=== PATIENT | male | born 1960 | race Caucasian/White ===

== ENCOUNTER 2021-12-26 05:05 | Observation (INO) ==
--- NOTE | 2021-12-09 11:04 | PAT Medication Instructions ---
Medication Instructions Date of Service December 09, 2021 Home Medications Medication Instructions Recorded alprazolam 0.5 mg tablet 0.5 mg PO TID #30 tab 09/18/20 donepezil 5 mg tablet 5 mg PO HS #30 tab 11/19/21 alprazolam 0.5 mg tablet 0.5 mg PO TID cholecalciferol (vitamin D3) 50 mcg (2,000 unit) capsule 50 mcg PO QAM turmeric root extract 500 mg capsule 500 mg PO QAM sertraline 50 mg tablet (Zoloft) 50 mg PO QAM donepezil 5 mg tablet 5 mg PO HS Total Beets 1 dose PO DAILY amlodipine 2.5 mg tablet 2.5 mg PO QAM ezetimibe 10 mg tablet 10 mg PO QAM gabapentin 300 mg capsule 900 mg PO TID Glucosamine Chondroitin 1 cap PO QAM lisinopril 20 mg tablet 20 mg PO QAM mirtazapine 15 mg tablet 30 mg PO HS rosuvastatin 20 mg tablet 20 mg PO Q OTHER DAY STOP taking 2 weeks before surgery (or as soon as possible if surgery is within 2 weeks) turmeric root extract 500 mg capsule 500 mg PO QAM Total Beets 1 dose PO DAILY Glucosamine Chondroitin 1 cap PO QAM DO NOT take the morning of surgery cholecalciferol (vitamin D3) 50 mcg (2,000 unit) capsule 50 mcg PO QAM lisinopril 20 mg tablet 20 mg PO QAM Take morning of surgery With a small sip of water, OTHERWISE NOTHING TO EAT OR DRINK AFTER MIDNIGHT: alprazolam 0.5 mg tablet 0.5 mg PO TID sertraline 50 mg tablet (Zoloft) 50 mg PO QAM amlodipine 2.5 mg tablet 2.5 mg PO QAM ezetimibe 10 mg tablet 10 mg PO QAM gabapentin 300 mg capsule 900 mg PO TID rosuvastatin 20 mg tablet 20 mg PO Q OTHER DAY (if scheduled to take on day of surgery) Take evening before surgery alprazolam 0.5 mg tablet 0.5 mg PO TID donepezil 5 mg tablet 5 mg PO HS gabapentin 300 mg capsule 900 mg PO TID mirtazapine 15 mg tablet 30 mg PO HS Other Notes If you have any questions please call us at [phone] or [phone] or [phone] or [phone]
--- NOTE | 2021-12-10 14:09 | Anesthesiology Consultation ---
Date of Service December 10, 2021 Assessment & Plan (1) Encounter for pre-operative examination: - COVID screening: Per assessment on 12/10: No known COVID-19 positive contacts or current COVID-19 related symptoms. Travel screen negative. Patient vaccinat ed. Surgeon arranging preop COVID testing. Awaiting results. - Cardiology office visit (11/06/21): "New patient- abnormal stress test [positive exercise stress EKG done 10/23/21- see testing section for report].. unavailable for review today... hypertension, benign.. Add amlodipine for BP and antianginal." Previous stress test reviewed and recommendation for patient to have f/u nuclear stress test (done 12/09/21) which was unremarkable. Chart Review Chart Review: Acceptable Risk for Surgery (pending evaluation AM DOS) and Patient seen in Pre Admission Testing Teaching & Discussion Pre-Anesthesia Teaching/Discussion Notes: Instructed NPO after midnight before surgery,except medications with 15 cc of water. Medication instructions provided according to the PAT guidelines. History Surgery Operation Date: 12/26/21 07:00 Proposed Procedures p Right Total Knee Arthroplasty - Adrian Flores MD Height/Weight Height: 5 ft 11 in Weight: 88.3 kg Allergies Allergy/AdvReac Type Severity Reaction Status Date / Time Penicillins Allergy Unknown Verified 12/10/21 14:37 reaction as child Medications Home Medications Medication Instructions Recorded Confirmed Last Taken alprazolam 0.5 mg tablet 0.5 mg PO TID #30 tab 09/18/20 12/09/21 Unknown cholecalciferol (vitamin D3) 50 50 mcg PO QAM 10/09/20 12/09/21 Unknown mcg (2,000 unit) capsule turmeric root extract 500 mg 500 mg PO QAM 10/09/20 12/09/21 Unknown capsule sertraline 50 mg tablet (Zoloft) 50 mg PO QAM 08/16/21 12/09/21 Unknown donepezil 5 mg tablet 5 mg PO HS #30 tab 11/19/21 12/09/21 Unknown Total Beets 1 dose PO DAILY 12/09/21 12/09/21 Unknown amlodipine 2.5 mg tablet 2.5 mg PO QAM 12/09/21 12/09/21 Unknown ezetimibe 10 mg tablet 10 mg PO QAM 12/09/21 12/09/21 Unknown gabapentin 300 mg capsule 900 mg PO TID 12/09/21 12/09/21 Unknown glucosamine sulf dipot 1 cap PO QAM 12/09/21 12/09/21 Unknown chlr,msm,chond 550 mg-C 30 mg-geneva 1 mg capsule (Glucosamine Chondroitin) lisinopril 20 mg tablet 20 mg PO QAM 12/09/21 12/09/21 Unknown mirtazapine 15 mg tablet 30 mg PO HS 12/09/21 12/09/21 Unknown rosuvastatin 20 mg tablet 20 mg PO Q OTHER DAY 12/09/21 12/09/21 Unknown Past Medical History Medical History Alzheimer's dementia Mild per [facility] [place] ([place]. Sr) Anxiety Reason for gabapentin per pt High cholesterol Hypertension ABEL (obstructive sleep apnea) Has mouth guard (does not use) Osteoarthritis Exercise / Class Metabolic Activity II 4-5 Yardwork/Stairs/Walk up hill Past Family History Family History Father Dementia Cancer Mother Parkinson disease Grandmother (Maternal) Heart disease Grandfather (Maternal) Stroke Grandmother (Paternal) Cancer Brain cancer Past Surgical History Surgical History History of colonoscopy History of myringotomy History of tonsillectomy History of tooth extraction Hx of LASIK S/P hernia surgery x4 S/P knee replacement Left knee Past Anesthesia History No Hx of Anesthesia Complications and No Family Hx of Anesthesia Complications History of PONV No Hx of PONV and No Hx of Motion Sickness Social History Smoking Status: Never smoker Do You Dip or Chew Tobacco: No Hx Alcohol Use: Yes Alcohol type: other alcohol intake frequency: a few times a week Hx Substance Use: No substance use type: does not use Review of Systems Patient denies chest pain, shortness of breath, dyspnea on exertion, fever, chills, cough, wheezing, palpitations. Physical Exam Vital Signs VITALS BP 123/78 P 53 TEMP 98.4 SP02 98%RA RESP 16 PHYSICAL Full cervical extension range of motion. Full TMJ range of motion. TMD 3.5 finger breaths Mallampati Score 2 Dentition: intact Lungs: clear throughout to auscultation Cardiac: regular rate and rhythm, no murmurs noted Spine: normal Carotid arteries: negative bruit Extremities: no edema Lab Results Anesthesia Preop Results Results Anesthesia Widget: WBC 6.35 K/uL (4.8-10.8) 12/10/21 Hgb 14.3 g/dL (14.0-18.0) 12/10/21 Hct 43.4 % (42-52) 12/10/21 Plt 188 K/uL (130-400) 12/10/21 Na 140 mmol/L (136-145) 12/10/21 K 4.0 mmol/L (3.5-5.1) 12/10/21 Cl 105 mmol/L (98-107) 12/10/21 CO2 29 mmol/L (21-32) 12/10/21 BUN 11 mg/dl (6-23) 12/10/21 Creat 0.77 mg/dl (0.6-1.4) 12/10/21 Glucose Level 83 mg/dl (70-99(Fasting)) 12/10/21 PT 10.9 Seconds (9.0-12.0) 12/10/21 PTT 30.2 Seconds (21.0-31.0) 12/10/21 INR 1.0 (0.9-1.1) 12/10/21 HA1c 5.4 % (4.5-5.6) 12/10/21 Urine Color Yellow 12/10/21 Urine Appearance Clear (Clear) 12/10/21 Urine pH 7.0 (4.5-7.5) 12/10/21 Urine Specific [place] 1.017 (1.000-1.030) 12/10/21 Urine Protein Negative (Negative) 12/10/21 Urine Glucose (UA) Negative (Negative) 12/10/21 Urine Ketones Negative (Negative) 12/10/21 Urine Blood Negative (Negative) 12/10/21 Urine Nitrite Negative (Negative) 12/10/21 Urine Bilirubin Negative (Negative) 12/10/21 Urine Urobilinogen Negative (Negative) 12/10/21 Urine Leukocyte Esterase Negative (Negative) 12/10/21 Blood Type O Positive 12/10/21 Antibody Screen NEGATIVE 12/10/21 Testing Electrocardiogram Date: 12/10/21 SB at 50bpm. Otherwise normal ECG. Echocardiogram Date: 09/19/21 EF 60%. No obvious regional wall motion abnormality. No significant valvular disease. Stress Test Date: 12/09/21 Type: nuclear Exercise stress test (10/23/21): Exercise stress EKG is positive for ischemia at a workload of approximately 7 METS. There is low sensitivity and if there is clinical concern for coronary artery disease, adding an imaging modality to the stress test is advised. Patient was subsequently seen by cardiology and nuclear stress test was performed 12/09/2021 which was unremarkable. Nuclear stress test (12/09/21): SPECT perfusion images are considered to be WNL. No significant infarction/ischemia. LVEF 59%.
--- NOTE | 2021-12-11 15:04 | History & Physical Report ---
Date of Service December 11, 2021 Assessment & Plan (1) Osteoarthritis of right knee: Plan: PRE-OP Diagnosis: Right knee osteoarthritis Planned Procedure: Right total knee arthroplasty Plan: Patient is scheduled to undergo this procedure at the [facility] with a 23-hour observation admission with Dr. Flores on December 26, 2021. Risks and complications of the procedure such as: Infection, bleeding, pain, scarring, nerve blood vessel damage, weakness, wound problems, stiffness, incomplete relief of symptoms, hardware failure, hardware loosening, wear, fracture, tendon or ligament injury, blood clots, embolism, heart attack, stroke and were explained to the patient at his visit today. Informed consent to perform the procedure was obtained. Patient also understands risks of proceeding with surgical intervention during the COVID-19 pandemic. Currently he is asymptomatic and understands that he will need to be tested prior to surgery. Patient is scheduled to meet with anesthesia later today and while there he will obtain a CBC with differential, complete metabolic panel, PT/INR, blood type and screen, urinalysis, urine culture and sensitivity, EKG, hemoglobin A1c and a nasal culture for MRSA. Patient states that he is schedul ed to meet with his primary care provider this coming Thursday for preoperative clearance. During today's appointment with a reviewed the total knee packet, discussed discharge planning. We also talked about lectures offered by [facility] in regards to joint replacement surgery via Zoom. Patient states he has a walker he will bring with him on the day of surgery. I advised him that he will be discharged from the hospital on postoperative day 1 with prescriptions for a narcotic pain medication, and anti-inflammatory medication. We would like him to use extra strength Tylenol for supplemental pain control and an 81 mg aspirin twice a day for the first 30 days postoperatively for blood clot prevention. Patient states that he would most likely do in-home physical therapy for the first 2 weeks postoperatively and then will transition to outpatient physical therapy Near his home. Patient is scheduled for his 2-week postoperative follow-up with myself on January 10 at 1 PM. Patient and his verbalized understanding of all information provided during today's visit. They thanked us for the care that they have received. If they have questions or concerns or should arise prior to the patient's surgery, they will contact clinic. History of Present Illness Chief Complaint: Chief Complaint: Right knee pain Primary Care Provider: Luc Uriostegui History of Present Illness (including history relevant to procedure): This 61-year-old male presents to clinic today for his preoperative history and physical. Patient complains of a 5 to 6-year history of significant right sided knee pain that has become progressively worse over the past several months. He localizes most of his pain to the medial aspect of his knee. Pain is very bothersome and affects him when he gets in and out of his car, goes up or down steps, attempts to walk long distances or does any type of twisting movements. Patient states that he had his left knee replaced several years ago and states that symptoms that he is having in his right knee are very similar to those in his left prior to his surgery. He would like to proceed with surgical intervention at this time. Review Of Systems: A 12 point review of systems is performed is unremarkable except for those things stated in the HPI and past medical history. Past Medical History: Problems: Chronic nausea Anxiety Loss of memory Hypertension Heart palpitations Hiatal hernia Procedure History Procedure Procedure Date Comments Knee replacement Bilateral inguinal hernia repair Umbilical hernia repair 2018 - left Allergies and Sensitivities: penicillins(unknown) Social history: Patient states that he drinks approximately 2 alcoholic beverages per week. He denies tobacco or illicit drug use. Family history: Parkinson's disease, Alzheimer's dementia, cancer and heart disease Current Home Meds: (Last Updated 12/10 12:45) ALPRAZolam (Xanax) 2.5 mg PO Daily cholecalciferol (Vitamin D3) PO Daily chondroitin-glucosamine (Chondroitin-Glucosamine oral tablet) PO Daily w/MSM cyanocobalamin (Vitamin B12) donepezil 5 mg PO Daily ezetimibe 10 mg PO Daily gabapentin 400 mg PO Daily lisinopril (lisinopril 20 mg oral tablet) 20 mg TAKE 1 TABLET BY MOUTH EVERY DAY mirtazapine (mirtazapine 15 mg oral tablet) rosuvastatin 20 mg PO Daily sertraline (Zoloft) 25 mg PO Daily turmeric (turmeric 500 mg oral capsule) unknown medication (BEETS) Initial Wt: 12/10 88.0 kg 194 lb Allergies Allergy/AdvReac Type Severity Reaction Status Date / Time Penicillins Allergy Unknown Verified 12/10/21 14:37 reaction as child Home Medications Medication Instructions Recorded Confirmed Type alprazolam 0.5 mg tablet 0.5 mg PO TID #30 tab 09/18/20 12/09/21 Rx cholecalciferol (vitamin D3) 50 50 mcg PO QAM 10/09/20 12/09/21 History mcg (2,000 unit) capsule turmeric root extract 500 mg 500 mg PO QAM 10/09/20 12/09/21 History capsule sertraline 50 mg tablet (Zoloft) 50 mg PO QAM 08/16/21 12/09/21 History donepezil 5 mg tablet 5 mg PO HS #30 tab 11/19/21 12/09/21 Rx Total Beets 1 dose PO DAILY 12/09/21 12/09/21 History amlodipine 2.5 mg tablet 2.5 mg PO QAM 12/09/21 12/09/21 History ezetimibe 10 mg tablet 10 mg PO QAM 12/09/21 12/09/21 History gabapentin 300 mg capsule 900 mg PO TID 12/09/21 12/09/21 History glucosamine sulf dipot 1 cap PO QAM 12/09/21 12/09/21 History chlr,msm,chond 550 mg-C 30 mg-geneva 1 mg capsule (Glucosamine Chondroitin) lisinopril 20 mg tablet 20 mg PO QAM 12/09/21 12/09/21 History mirtazapine 15 mg tablet 30 mg PO HS 12/09/21 12/09/21 History rosuvastatin 20 mg tablet 20 mg PO Q OTHER DAY 12/09/21 12/09/21 History Past Med/Surg History Medical History Alzheimer's dementia [place] [facility] [place] Anxiety Reason for gabapentin per pt High cholesterol Hypertension ABEL (obstructive sleep apnea) Has mouth guard (does not use) Osteoarthritis Surgical History History of colonoscopy History of myringotomy History of tonsillectomy History of tooth extraction Hx of LASIK S/P hernia surgery x4 S/P knee replacement Left knee Family History Father Dementia Cancer Mother Parkinson disease Grandmother (Maternal) Heart disease Grandfather (Maternal) Stroke Grandmother (Paternal) Cancer Brain cancer Social History Smoking Status: Never smoker Second Hand Exposure: No; Hx Alcohol Use: Yes Alcohol type: other Hx Substance Use: No Preferred Language: Yakut Communication Ability: Effective Tool Pusher Required: No Beliefs That Will Affect Care: None Current Living Situation: Spouse current occupational status: retired Feels Safe at Home: Yes Assistive Devices: Glasses Review of Systems All systems reviewed & are unremarkable except as noted in Subjective Physical Exam Physical Exam: Physical Exam: (relevant to the procedure, including heart and lung evaluation) General: Alert and oriented x3 with proper grooming and hygiene Eyes: Pupils are equal and reactive to light with accommodation. Extraocular muscles are intact Throat: Deferred due to COVID-19 precautions Cardiac: Regular rate and rhythm with no murmurs or gallops appreciated Lungs: Clear to auscultation throughout with no wheezing, rales or rhonchi Abdomen: Mildly obese, nondistended, nontender with NABS Extremities: Right knee; Range of motion is from 0 degrees of extension to 130 degrees of flexion. Patient has a 1+ effusion. He experiences medial joint line tenderness when knee is palpated in the flexed position. There is no laxity with varus or valgus stressing. AP drawer sign and Whit test are negative. Patient is neurovascular intact in the right lower extremity. Neuro: Cranial nerves II through XII are intact with no motor or sensory deficit Skin: Normal in appearance with no open skin areas or discharge Results & Data ([facility]) Diagnostic Findings Studies (relevant to the procedure): X-rays done include standing long-leg alignment film and 3 views of the right knee. On the long-leg film, he is in pathologic varus alignment with the weightbearing axis passing along the most medial aspect of the tibial plateau. He has [id number] disease noted in the medial compartment. Three-view series shows evidence of an effusion on the lateral view as well as tricompartmental osteophyte formation.
[2021-12-26] MEDS ORDERED: TRANEXAMIC ACID 1,000 MG **IV Pre-op IV SCH (06:00)
[2021-12-26] MEDS ORDERED: LR 500ML BOLUS, THEN 15ML/HR IV SCH (06:00)
[2021-12-26] MEDS ORDERED: LR 60ML/HR IV SCH (06:00)
[2021-12-26] MEDS ORDERED: TRANEXAMIC ACID 1,000 MG **IV Intra-op IV SCH (06:00)
[2021-12-26] MEDS ORDERED: traMADol HCL 50 MG TABLET PO SCH (06:00)
[2021-12-26] MEDS ORDERED: Scopolamine 1 MG TDSY TD SCH (06:00)
[2021-12-26] MEDS ORDERED: CeleBREX 200 MG CAP PO SCH (06:00)
[2021-12-26] MEDS ORDERED: ceFAZolin 2000MG 2,000 MG/15 ML SYR IV SCH (06:00)
[2021-12-26] MEDS ORDERED: ROPIVACAINE 0.5% HCL/PF 150 MG, BUPIVACAINE 0.75% MPF 20 ML, EPINEPHrine 0.15 MG, Ketor... INFIL SCH (06:00)
[2021-12-26] MEDS ORDERED: ACETAMINOPHEN 500 MG TAB PO SCH (06:00)
[2021-12-26] MEDS ORDERED: dexAMETHasone 4 MG TAB PO SCH (06:00)
[2021-12-26] MEDS ORDERED: FAMOTIDINE 20 MG TAB PO SCH (06:00)
[2021-12-26] MEDS ORDERED: MIDAZOLAM HCL 1 MG/ML 2ML VIAL ONE (06:13)
[2021-12-26] MEDS ORDERED: fentaNYL citrate 100 MCG/2 ML VIAL ONE (06:14)
[2021-12-26] MEDS ORDERED: BUPIVACAINE 0.5 % 5 MG/1 ML PF 10ML VIAL ONE (06:25)
[2021-12-26] MEDS ORDERED: ROPIVACAINE 0.5% 5 MG/ML 30 ML VIAL ONE (06:25)
--- NOTE | 2021-12-26 06:39 | History & Physical Bridge Note ---
Date of Service December 26, 2021 History & Physical Bridge Note I have examined the patient, reviewed the History & Physical and in the interval since the performance of the History & Physical I have noted the following changes of clinical significance: no changes noted
[2021-12-26] MEDS ORDERED: fentaNYL citrate 100 MCG/2 ML VIAL IV PRN (06:46)
[2021-12-26] MEDS ORDERED: ONDANSETRON INJ 2 MG/ML 2 ML VIAL IV PRN ×2 (06:46→10:07)
[2021-12-26] MEDS ORDERED: ATROPINE SULFATE 0.1 MG/ML 10ML SYR IV PRN (06:46)
[2021-12-26] MEDS ORDERED: ePHEDrine sulfate 50 MG/ML AMP IV PRN (06:46)
[2021-12-26] MEDS ORDERED: HYDROmorphone INJ 2 MG/ML SYR/VIAL IV PRN (06:46)
[2021-12-26] MEDS ORDERED: ORTHO JOINT ANESTHETIC ONE (06:47)
[2021-12-26] MEDS ORDERED: ONDANSETRON INJ 2 MG/ML 2 ML VIAL ONE (07:13)
[2021-12-26] MEDS ORDERED: PROPOFOL IV EMULSION 10 MG/ML 20 ML VIAL IV ONE ×2 (07:13→08:23)
--- NOTE | 2021-12-26 08:59 | Operative Report ---
Post Operative Report Pre & Post Diagnosis Operation Date: 12/26/21 07:00 Pre-Op Diagnosis: Right Knee Osteoarthritis Post-Op Diagnosis: Right Knee Osteoarthritis I identified the patient and participated in the time-out.: Yes Procedure Operation Date: 12/26/21 07:00 Actual Procedures p Right Total Knee Arthroplasty(Right) - Adrian Flores MD Surgeon Lucero Flores MD Corporate Treasurer Mook/Tsering TRUJILLO Estimated Blood Loss 100 Findings Consistent with Post-Op Diagnosis see operative report Specimens see operative report Drains none Complications none Disposition Accompanied Patient To Recovery: Yes Indications This 61-year-old male presented to the office with complaints of persisting right knee pain. He had tried conservative care measures without improvement. He elected to proceed with surgical intervention after being educated about potential risks and outcomes. Preoperative imaging was obtained. Description of Procedure Patient was administered a spinal anesthetic and then taken to the operating room where he was given sedation. He was prepped and draped in the usual sterile fashion. Please see Dr. Flores's operative report for specifics of the procedure. I was present for the entire case from initial patient positioning through final wound closure. Assistance was provided in tissue retraction, hemostasis, trial implant placement, final implant placement, and final wound closure. Patient was taken to the recovery room in satisfactory condition. I attest to the content of the Intraoperative Record and any orders documented therein. Any exceptions are noted below.
--- NOTE | 2021-12-26 09:01 | Operative Report ---
Post Operative Report Pre & Post Diagnosis Operation Date: 12/26/21 07:00 Pre-Op Diagnosis: Right Knee Osteoarthritis Post-Op Diagnosis: Right Knee Osteoarthritis I identified the patient and participated in the time-out.: Yes Procedure Operation Date: 12/26/21 07:00 Actual Procedures p Right Total Knee Arthroplasty(Right) - Adrian Flores MD Surgeon Rohan Flores MD Engineering Patternmaker Mook/Tsering TRUJILLO Estimated Blood Loss 100 Findings Consistent with Post-Op Diagnosis Consistent with post op diagnosis. Specimens No specimens. Description of Procedure I participated in prepping dressing and assisted Dr. Flores during the procedure. Please see Dr. Flores note. I attest to the content of the Intraoperative Record and any orders documented therein. Any exceptions are noted below.
--- NOTE | 2021-12-26 09:05 | Operative Report ---
Post Operative Report Pre & Post Diagnosis Operation Date: 12/26/21 07:00 Pre-Op Diagnosis: Right Knee Osteoarthritis Post-Op Diagnosis: Right Knee Osteoarthritis I identified the patient and participated in the time-out.: Yes Procedure Operation Date: 12/26/21 07:00 Actual Procedures p Right Total Knee Arthroplasty(Right) - Adrian Flores MD Surgeon Adrian Flores MD Soldering Inspector Emerita Delvalle MD and Ramon Cagle PA-C. Estimated Blood Loss 100 Findings Consistent with Post-Op Diagnosis Specimens Bone and soft tissue contents, right knee Anesthesia Type Spinal MAC Complications none Disposition Disposition: Recovery Room Indications 61-year-old gentleman, with right knee arthritis refractory to conservative management. X-rays demonstrate alef-re-dyug disease in the medial compartment. Tricompartmental osteophyte formation. I had a long discussion with him about the risks and benefits of surgery, alternatives, and expected outcomes. After reviewing all these elected to proceed with total knee arthroplasty. All questions were answered. Informed consent was signed. Description of Procedure Patient was identified in the preoperative holding area where the surgical site, right knee, was marked. Patient was brought back to the operating room, placed on the operating room table, and IV sedation was administered. All bony prominences were padded. Perioperative antibiotics and tranexamic acid were administered. Exam under anesthesia was performed. This demonstrated varus alignment, stable ligamentous exam, and range of motion 0-130 degrees. The surgical site was prepped and draped in the normal sterile fashion. Prior to incision a multidisciplinary timeout was called. All in the room were in agreement. We began by exsanguinating the limb with an Esmarch bandage. Tourniquet was inflated to 250 mmHg. A 14 cm long incision was made over the anterior aspect of the knee. I dissected through the subcutaneous tissues to the level of the fascia. Full-thickness flaps were raised above the fascia. A medial parapatellar arthrotomy was made. Half the fat pad was excised. A medial release was performed with Bovie electrocautery on the proximal tibia. Synovitis in the knee and suprapatellar pouch was removed. The patella was then everted and held with 2 towel clips. The thickness of the patella was measured at 21 mm. Patellar resection was performed. Caliper showed the patella thickness now to be 14 mm. A size 38 trial was placed and had a great fit. The 3 drill holes were placed then the trial button was placed. The patellar thickness was now 22 mm which I was very happy with. The patellar trial was then removed, the patella was everted and the knee was flexed up. Osteophytes were removed from the femoral condyles and intercondylar notch. The ACL and PCL were excised. Intramedullary drill guide was drilled into the femur. Distal femoral cutting guide was placed set at 5 degrees of valgus to resect 10 mm off the distal femur. Distal femoral resection was made without difficulty. The tibia was then exposed. The lateral meniscus was sharply excised. The tibial cutting jig was positioned to resect 9 mm off the less involved compartment. The jig was then pinned in position and the tibial cut was made. We then brought the knee into full extension. Lamina spreaders were placed. The medial meniscus was excised. The extension block was then placed for 6 mm thickness poly. This gave us full extension and excellent stability to varus and valgus. Next the knee was flexed up and the femoral sizing guide was placed. The patient sized to a size 6 femur. The 3 degree external rotation jig was used to create 2 holes in the distal femur. The jig was removed and the holes were compared to Whitesides axis and the epicondylar axis. We were happy with the rotation, and therefore placed a size three 4-in-1 cutting jig and pinned this into position. Our 4 cuts were made. The cutting jig was removed. The flexion block was then placed with the knee held at 90 degrees. There was excellent stability to varus and valgus at 90 degrees with no gapping medially or laterally. Next the box cutting jig was placed on the distal femur. The box cut was made and the femoral trial was impacted into position. The tibia was sized to a 6 for a fixed bearing component. The tibial tray and trial polyethylene was positioned in external rotation on the cut tibial surface and the knee was brought through a full range of motion. I was very happy with the stability through a full range of motion, and the patellar tracking was excellent. We then pinned the tibial tray into position and used the intramedullary drill followed by the keel punch. Next the trial components were removed. I then injected the posterior capsule and periosteum with the periarticular injection cocktail. The bone cuts were then irrigated and dried while the cement was mixed on the back table. The femoral component was cemented on first. Excess cement was removed. A lap sponge was placed over the femoral component for protection, then the tibia was subluxated anteriorly. The all polyethylene tibial component was then cemented in place. Again excess cement was removed. The knee was brought into full extension and held there until the cement cured. The patella was cemented and clamped. Dilute Betadine solution was then allowed to irrigate the knee while the cement cured. Once the cement was fully cured, the tourniquet was let down and meticulous hemostasis was ensured. The wound was irrigated out with copious amounts normal saline. The knee was brought through a full range of motion and we were very happy with the patella tracking and the stability. We then began to close. Interrupted 0 Vicryl suture was used to repair the patellar retinaculum in [id number] fashion. The quadriceps and patellar tendons were run with #1 Ethibond. The deep dermal layer was closed with interrupted 2-0 Vicryl. Dermabond and Zipline was used for the skin. A compressive dressing was placed. Patient's sedation was lifted and was transferred to recovery room in stable condition. Summary of implants: Depuy Attune Posterior Stabilized Cemented Femur, size 6 right Attune All-polyethylene tibial component, posterior stabilized 6 mm thickness, size 6 Attune patella medialized dome, size 38 2 batches of simplex high viscosity bone cement Postoperative course: Patient will be admitted to the floor for pain control and monitoring. Weightbearing as tolerated with a walker with no knee range of motion for 48 hours. Aspirin for DVT prophylaxis. I attest to the content of the Intraoperative Record and any orders documented therein. Any exceptions are noted below.
--- NOTE | 2021-12-26 09:31 | Anesthesiology Progress Note ---
Date of Service December 26, 2021 Anesthesia Post Procedure Vital Signs Vital Signs: Temp Pulse Resp BP Pulse Ox 12/26/21 09:25 70 16 116/68 95 12/26/21 09:15 70 16 116/70 95 12/26/21 09:05 63 16 108/65 97 12/26/21 08:58 36.9 C 71 18 101/66 96 12/26/21 05:30 36.4 C L 66 18 134/87 96 Transfer of Care Handoff Completed per policy Notes Mental Status: alert / awake / arousable and participated in evaluation Patient Amnestic to Procedure: Yes Nausea / Vomiting: adequately controlled Pain: adequately controlled Airway Patency, RR, SpO2: stable & adequate BP & HR: stable & adequate Hydration State: stable & adequate Anesthetic Complications: no major complications apparent and Pt Satisfied with anesthetic care
--- NOTE | 2021-12-26 09:42 | XRay Report ---
TWO VIEWS RIGHT KNEE CLINICAL HISTORY: Postoperative examination. FINDINGS: AP and crosstable lateral portable views of the right knee are obtained. A right knee arthr oplasty is in near anatomic alignment. There has been undersurface remodeling of the patella. No acut e fracture is seen. There are expected postoperative changes around the knee including soft tissue ed raquel and subcutaneous gas. Bandaging material is noted anteriorly. A calcified fabella is incidentally noted. IMPRESSION: Expected postoperative changes status post right knee arthroplasty. No acute fracture is seen. ACT 112: Negative or not required by law. Electronically signed by: Edy Weeks M.D. 12/26/2021 9:41 AM
[2021-12-26] MEDS ORDERED: METOCLOPRAMIDE HCL INJ 5 MG/ML 2 ML VIAL IV PRN (10:07)
[2021-12-26] MEDS ORDERED: oxyCODONE HCL IR 5 MG TAB (IMMEDIATE RELEASE) PO PRN (10:07)
[2021-12-26] MEDS ORDERED: bisacodyL 10 MG SUPP PR PRN (10:07)
[2021-12-26] MEDS ORDERED: MAGNESIUM HYDROXIDE SUSP 30 ML UDC PO PRN (10:07)
[2021-12-26] MEDS ORDERED: ALUMINUM/MAGNESIUM SUSP 30 ML UDC PO PRN (10:07)
[2021-12-26] MEDS ORDERED: HYDROmorphone INJ 0.5 MG/0.5 ML SYR IV PRN (10:07)
[2021-12-26] MEDS ORDERED: NALOXONE HCL 0.4 MG/1 ML VIAL/CARP IV PRN (10:07)
[2021-12-26] MEDS ORDERED: TAMSULOSIN HCL 0.4 MG CAP PO PRN (10:07)
[2021-12-26] MEDS ORDERED: diphenhydrAMINE 50 MG/ML VIAL IV PRN (10:07)
[2021-12-26] MEDS: SODIUM CHLORIDE 0.9% 1000ML 1,000 ML IV SCH ×2 (10:47→20:13)
[2021-12-26] MEDS: amLODIPine BESYLATE 5 MG TAB PO SCH (11:27)
[2021-12-26] MEDS: GABAPENTIN 300 MG CAP PO SCH ×4 (11:27→22:24)
[2021-12-26] MEDS: lisinopril 20 MG TAB PO SCH (11:27)
[2021-12-26] MEDS: KETOROLAC TROMETHAMINE 15 MG/ML VIAL IV SCH ×3 (11:27→23:34)
[2021-12-26] MEDS: SERTRALINE HCL 50 MG TABLET PO SCH (11:27)
[2021-12-26] MEDS: EZETIMIBE 10 MG TABLET PO SCH (11:28)
[2021-12-26] MEDS: ALPRAZolam 0.5 MG TABLET PO SCH ×2 (11:29→20:09)
[2021-12-26] MEDS: ACETAMINOPHEN 500 MG TAB PO SCH ×2 (14:23→22:24)
[2021-12-26] MEDS: ceFAZolin 2000MG 2,000 MG/15 ML SYR IV SCH ×2 (16:00→23:34)
[2021-12-26] MEDS: ASCORBIC ACID 500 MG TAB PO SCH (16:00)
[2021-12-26] MEDS ORDERED: Scopolamine CHECK PATCH PLACEMENT SCH (16:00)
[2021-12-26] MEDS: FERROUS GLUCONATE 324 MG TAB PO SCH (16:00)
[2021-12-26] MEDS: DOCUSATE SODIUM 100 MG CAP PO SCH (20:10)
[2021-12-26] MEDS: ASPIRIN 81 MG ECTAB PO SCH (20:12)
[2021-12-26] MEDS ORDERED: MIRTAZAPINE TAB 15 MG TAB PO SCH (21:00)
[2021-12-26] MEDS ORDERED: ROSUVASTATIN CALCIUM 20 MG TAB PO SCH (21:00)
[2021-12-26] MEDS ORDERED: SENNA 8.6 MG TAB PO SCH (21:00)
[2021-12-26] MEDS ORDERED: DONEPEZIL HCL 5 MG TAB PO SCH (21:00)
[2021-12-27] MEDS: ACETAMINOPHEN 500 MG TAB PO SCH (05:38)
[2021-12-27] MEDS: KETOROLAC TROMETHAMINE 15 MG/ML VIAL IV SCH (05:38)
[2021-12-27] MEDS: SERTRALINE HCL 50 MG TABLET PO SCH ×2 (07:26→07:35)
[2021-12-27] MEDS: DOCUSATE SODIUM 100 MG CAP PO SCH (07:27)
[2021-12-27] MEDS: amLODIPine BESYLATE 5 MG TAB PO SCH (07:28)
[2021-12-27] MEDS: FERROUS GLUCONATE 324 MG TAB PO SCH (07:34)
[2021-12-27] MEDS: ASPIRIN 81 MG ECTAB PO SCH (07:34)
[2021-12-27] MEDS: EZETIMIBE 10 MG TABLET PO SCH (07:34)
[2021-12-27] MEDS: lisinopril 20 MG TAB PO SCH (07:34)
[2021-12-27] MEDS: ALPRAZolam 0.5 MG TABLET PO SCH (07:35)
[2021-12-27] MEDS: ASCORBIC ACID 500 MG TAB PO SCH (07:35)
[2021-12-27] MEDS: GABAPENTIN 300 MG CAP PO SCH (07:35)
[2021-12-27 08:31] LABS: Hematocrit (blood only) 34.6 % (42-52); Hemoglobin 11.6 g/dL (14.0-18.0); Mean Corpuscular Hemoglobin 30.6 pg (25-34); Mean Corpuscular Hgb Conc 33.5 g/dL (32-36); Mean Corpuscular Volume 91.3 fL (80-100); Mean Platelet Volume 11.1 fL (7.4-10.4); Platelet Count 174 K/uL (130-400); RDW Coefficient of Variation 12.4 % (11.5-14.5); RDW Standard Deviation 41.5 fL (36.4-46.3); Red Blood Count 3.79 M/uL (4.7-6.1); White Blood Count 12.61 K/uL (4.8-10.8)
[2021-12-27 08:33] LABS: Calcium 8.1 mg/dl (8.5-10.1); Est GFR (Non-African American) 95.7 ml/min; Potassium 4.2 mmol/L (3.5-5.1)
[2021-12-27] MEDS ORDERED: MULTIVITAMIN TAB PO SCH (09:00)
--- NOTE | 2021-12-27 10:04 | Orthopedic Progress Note ---
Date of Service December 27, 2021 Assessment & Plan (1) Status post total right knee replacement: Plan: POD1 s/p total knee arthroplasty WBAT with walker PT/OT Diet - regular Frequently ice and elevate with blankets stacked under ankle DVT prophylaxis: ASA 81mg BID x 30 days, TEDS x 2 weeks Pain control: Tylenol 1000mg q 8hrs, oxycodone 5-10mg q4-6 hrs for moderate pain, Diclofenac 75mg BID x 2 weeks to go home with Dressing: Silverlon dressing in tact. Pt can leave on until follow up in two weeks Discharge to home. Pt is set up with [facility] next week Follow up as scheduled with TAMIKO Ramos PA-C 01/10 @1pm Admission and Anticipated Discharge Date Admission Date: December 26, 2021 Subjective Pt was seen and examined bedside. POD #1 s/p right total knee arthroplasty. Pt was admitted last night for observation. No major events over night. Vitals are stable. Labs unremarkable. X-rays show normal post operative changed. Pt reports they are doing well and pain is controlled. They are tolerating PO intake and voiding adequate amounts. Working with PT this morning. Pt denies F/C, N/V/D, SOB, CP. Pt deemed medically stable and ready for discharge if cleared by PT. Physical Exam Physical Exam: General: Pt laying in hospital bed AA&O, in NAD, calm and cooperative during exam Lower Extremity: Dressing in tact and not saturated. No surrounding erythema, drainage. Pt has full ROM of ankle and all 5 digits. Pt has 5/5 strength with resisted DF/PF. SLR in tact. Calf supple and non tender. NVI with sensation to light touch distally and good distal pulses present. Lower extremity noted to have good color and temperature with no signs of vascular or lymphatic insufficiency. Results & Data ([facility]) Vital Signs (Past 12 Hours) Vital Signs Temp Pulse Resp BP BP Pulse Ox 12/27/21 07:24 36.8 C 72 18 120/73 96 12/27/21 05:35 36.7 C 64 18 102/62 95 12/27/21 03:41 36.5 C 61 16 91/51 L 94 12/26/21 23:05 36.4 C L 54 L 18 96/60 L 94 Laboratory Results 12/27/21 12/27/21 Range/Units 07:20 07:20 WBC 12.61 H (4.8-10.8) K/uL RBC 3.79 L (4.7-6.1) M/uL Hgb 11.6 L (14.0-18.0) g/dL Hct 34.6 L (42-52) % MCV 91.3 (80-100) fL MCH 30.6 (25-34) pg MCHC 33.5 (32-36) g/dL RDW Std Deviation 41.5 (36.4-46.3) fL RDW Coeff of Monse 12.4 (11.5-14.5) % Plt Count 174 (130-400) K/uL MPV 11.1 H (7.4-10.4) fL Sodium 139 (136-145) mmol/L Potassium 4.2 (3.5-5.1) mmol/L Chloride 108 H (98-107) mmol/L Carbon Dioxide 24 (21-32) mmol/L Anion Gap 7 (3-11) BUN 16 (6-23) mg/dl Creatinine 0.80 (0.6-1.4) mg/dl Est Cr Clr Drug Dosing 102.0 ml/min Est GFR ( Amer) 111.0 ml/min Est GFR (Non-Af Amer) 95.7 ml/min BUN/Creatinine Ratio 20.0 (10-20) Glucose 139 H (70-99(Fasting)) mg/dl Calcium 8.1 L (8.5-10.1) mg/dl
[2021-12-27] MEDS ORDERED: CeleBREX 200 MG CAP PO SCH (12:00)
--- NOTE | 2021-12-27 15:59 | Discharge Summary ---
Date of Service December 27, 2021 Admission HPI Per Admitting Provider Pt was seen and examined bedside. POD #1 s/p right total knee arthroplasty. Pt was admitted last night for observation. No major events over night. Vitals are stable. Labs unremarkable. X-rays show normal post operative changed. Pt reports they are doing well and pain is controlled. They are tolerating PO intake and voiding adequate amounts. Working well with PT/OT. Pt denies F/C, N/V/D, SOB, CP. Pt deemed medically stable and ready for discharge. Principal Diagnosis S/p right total knee replacement Discharge Exam General: Pt laying in hospital bed AA&O, in NAD, calm and cooperative during exam Lower Extremity: Dressing in tact and not saturated. No surrounding erythema, drainage. Pt has full ROM of ankle and all 5 digits. Pt has 5/5 strength with resisted DF/PF. SLR in tact. Calf supple and non tender. NVI with sensation to light touch distally and good distal pulses present. Lower extremity noted to have good color and temperature with no signs of vascular or lymphatic insufficiency. Discharge Data Allergies Allergy/AdvReac Type Severity Reaction Status Date / Time Penicillins Allergy Unknown Verified 12/26/21 05:23 reaction as child Procedures Performed Operation Date: 12/26/21 07:00 Actual Procedures p Right Total Knee Arthroplasty(Right) - Adrian Flores MD Ordered Studies 12/26/21 05:00 US - OR guided needle placemen Routine Hospital Course (1) Status post total right knee replacement: POD1 s/p total knee arthroplasty WBAT with walker PT/OT Diet - regular Frequently ice and elevate with blankets stacked under ankle DVT prophylaxis: ASA 81mg BID x 30 days, TEDS x 2 weeks Pain control: Tylenol 1000mg q 8hrs, oxycodone 5-10mg q4-6 hrs for moderate pain, Diclofenac 75mg BID x 2 weeks to go home with Dressing: Silverlon dressing in tact. Pt can leave on until follow up in two weeks Discharge to home. Pt is set up with [facility] next week Follow up as scheduled with TAMIKO Ramos PA-C 01/10 @1pm Pt deemed medically and orthopedically stable for dc today Total Time Total Time Spent Total Time Spent (In Minutes): 45 minutes Discharge Plan Discharge Items Patient Disposition: Home - Home Health Services Reason For Visit: Right Knee Osteoarthritis Discharge Diagnosis: Right knee s/p total knee replacement Condition on Discharge: Good Activity: Per Instructions section Lifting: Wait until after follow-up appointment Bathing Comment: keep the silverlon dressing in place Exercise/Sports: Wait until after follow-up appointment Driving/Machine Use: No driving until cleared by Dr. Flores Weightbearing: Full weightbearing Non-emergency contact: Surgeon Call non-emergency contact if: you have any medication questions, your pain is not controlled, your temperature is above 101, your wound has increased redness, your wound has increased drainage and your wound pain has increased Follow-up/Referrals: Donald Ramos PA-C [Physician Health Informatics Advisor] - 01/10/22 1:00 pm Luc Uriostegui [Primary Care Provider] - Diet: Heart Healthy Addtl Attending Provider Instructions: Post-operative Instructions Dear Patient and Family/Friends, Before you are discharged from the hospital, it is important to know what to expect when you get home after surgery. To that end, we have created this sheet of discharge instructions which covers many commonly asked questions. Make sure you go through this sheet in its entirety with your nurse before you are discharged. Please note that we will go over the specifics of your surgery and recovery when you return for your first post-operative visit. Sincerely, Dr. Flores Pain Expect to be in a fair amount of pain after surgery. Remember, our goal is not to eliminate your pain, but to make it tolerable. It is a good idea to stay ahead of your pain by taking the medications you were prescribed once you get home. Typically, the pain starts improving 3-7 days after surgery. You should start weaning off the narcotic pain medication (oxycodone, hydrocodone, hydromorphone, morphine) as soon as your pain improves. Please call our office if your pain is not adequately controlled. Ice Ice your operative site at least 5 times a day for 15-30 minutes at a time. Make sure you have a thin cloth between the ice or cooling unit and your skin to prevent flores bite. This is especially important if you received a nerve block. Continue icing your operative site for the first 5-7 days after surgery, then as needed. Diet/Nausea/Vomiting Start by drinking clear liquids and eating crackers. If you can tolerate this, then you may resume your normal diet. If you feel nauseated or vomit, take Zofran/ondansetron (if prescribed). Please call our office if you have intractable nausea or vomiting, or, if after hours, you may go to the Emergency Room for help. Constipation Constipation is a common side effect of narcotic pain medication. If you have not had a bowel movement within 2 days after surgery, we recommend purchasing an over the counter laxative such as Milk of Magnesia, Dulcolax, or Miralax from a local pharmacy, and taking it as instructed. Call our clinic if any questions. Nerve block The anesthesia team sometimes places a nerve block to help with post-operative pain control. This results in significant numbness and inability to move the extremity. The nerve block usually wears off in 8-12 hours, but sometimes can last up to 24 hours. Please call our office if you are still unable to move your extremity after 24 hours, unless you received a pain pump to take home. Nerve blocks typically wear off quickly, so start taking pain medication as soon as you start feeling soreness near your surgical site. Weight bearing and Range of Motion. Weight bear as tolerated on the Right leg. Use your walker or crutches to assist with ambulation Physical therapy You will be given a prescription for physical therapy or occupational therapy at your first post-operative appointment. Typically, patients start therapy within 1 week of surgery Wound care and showering We will inspect your wound at your first post-operative visit, and may do a dressing change at that time. Most patients will be in a water-proof dressing that is removed 14 days after surgery. It is normal to see some dried blood on the dressing. Do not remove your dressing, paper strips or sutures yourself unless you are given permission. Showering is allowed the day after surgery. Do not scrub or remove any dressings. The wound should not be submerged underwater (i.e. in a bathtub or pool) until 4 weeks after surgery HEBERT stockings If you were given white stockings, these are to be worn at all times except to shower (on both legs) for the first 2 weeks after surgery. Driving You may not drive while taking narcotic pain medication or while in a cast, splint, sling or brace. You, the patient, need to make the final determination about when you are safe to drive, however, the earliest you may consider driving after surgery is below: Hand/Wrist/Elbow Surgery: 3 days Shoulder Surgery: 2 weeks Hip,/Knee/Ankle Surgery: 4 weeks Return to Work Your return to work depends on what surgery was done and what type of work you do. Please bring any paperwork your employer needs completed to your first post-operative visit. Also, bring a description of your job duties, as this helps us to understand what risks you may face at work. Travel Avoid long distance travel (greater than 1 hour) in airplanes and cars for the first 6 weeks after surgery. If you must travel, you need to have a Doppler ultrasound done before you travel to rule out a blood clot in your legs. Follow-up You should have a follow-up appointment already scheduled 1-2 days after surgery. If not, please contact our office to make this appointment before you leave the hospital. When to call the office It is normal to have swelling and bruising in the limb that was operated on. This will improve with time. It is also normal to have fevers for the first 2 days after surgery. Reasons you should call your doctor include: Uncontrolled pain; Nausea, vomiting, or constipation that does not improve with medication; Fevers over 101.5, chills, sweats; Drainage or bleeding from the wound; Foul odor; Spreading areas of redness; Any other concerns Take aspirin 81mg 2x day x 4 weeks to prevent clots. follow up in the office in 2 weeks as scheduled for zipline removal. Pending Studies at Discharge: No Stand-Alone Forms: My [employer], Smoking Cessation Medications and DC Order Prescriptions: New acetaminophen [Tylenol Extra Strength] 500 mg Tablet 1,000 mg PO Q8 Qty: 30 RF: 0 aspirin 81 mg Tablet,Delayed Release (Dr/Ec) 81 mg PO BID 30 Days Qty: 60 RF: 0 oxycodone 5 mg Tablet 5 mg PO Q4H PRN (Reason: pain) Qty: 18 RF: 0 diclofenac sodium 75 mg tablet,delayed release (DR/EC) 75 mg PO BID PRN (Reason: pain) Qty: 28 RF: 1 Continued alprazolam 0.5 mg tablet 0.5 mg PO TID Qty: 30 RF: 0 donepezil 5 mg tablet 5 mg PO HS Qty: 30 RF: 5 turmeric root extract 500 mg capsule 500 mg PO QAM RF: 0 cholecalciferol (vitamin D3) 50 mcg (2,000 unit) capsule 50 mcg PO QAM RF: 0 sertraline [Zoloft] 50 mg tablet 50 mg PO QAM RF: 0 amlodipine 2.5 mg Tablet 2.5 mg PO QAM RF: 0 gabapentin 300 mg Capsule 300 mg PO TID RF: 0 lisinopril 20 mg tablet 20 mg PO QAM RF: 0 mirtazapine 15 mg tablet 30 mg PO HS RF: 0 ezetimibe 10 mg tablet 10 mg PO QAM RF: 0 rosuvastatin 20 mg tablet 20 mg PO Q OTHER DAY RF: 0 Glucosamine Chondroitin 550-30-1 mg Capsule 1 cap PO QAM RF: 0 Total Beets 1 dose PO DAILY RF: 0 Discharge Orders: Discharge Order (Routine); Ordered 12/27/21 Ordered By: Geena Mackay Admission Data Admit Date/Time: 12/26/21 09:08 Attending Provider: Adrian Flores Admit Provider: Adrian Flores Primary Care Provider: Luc Uriostegui Other Interventions: Discharge Summary Assessment (RN) Last Done: 12/27/21 11:26
== END 2021-12-27 14:42 | disposition home or self-care (01) ==
LOC: ASU 05:05 → 3E 05:05